=== PATIENT | female | born 1995 | race Caucasian/White ===

== ENCOUNTER 2019-12-25 15:27 | Inpatient (IN) | payer OTHER ==
[~2019-12-25] VITALS: Ht 165.1 cm; Wt 76.8 kg
[2019-12-25] MEDS ORDERED: BENZ2TAB10 PO (15:42)
[2019-12-25] MEDS ORDERED: OLAN5TAB2 PO (15:42)
[2019-12-25 16:23] LABS: BASOPHILS % (AUTO) 0.4 % (0.0-2.0); EOSINOPHILS % (AUTO) 1.2 % (1.0-6.0); HEMATOCRIT 37.1 % (36-46); HEMOGLOBIN 11.7 g/dL (12.0-16.0); LYMPHOCYTES # (AUTO) 1.7 K/uL (1.0-4.8); MEAN CORPUSCULAR HEMOGLOBIN 25.8 pg (26.0-34.0); MEAN CORPUSCULAR HGB CONC 31.5 G/dL (31.0-37.0); MEAN CORPUSCULAR VOLUME 82 fL (80-100); MONOCYTES # (AUTO) 0.4 K/uL (0.1-1.0); MONOCYTES % (AUTO) 4.8 % (2.0-9.0); NEUTROPHILS # (AUTO) 6.2 K/uL (1.8-7.7); NEUTROPHILS % (AUTO) 73.6 % (40.0-70.0); PLATELET COUNT (AUTO) 377 K/uL (150-450); RED BLOOD CELL COUNT(AUTO) 4.53 MIL/uL (4.00-5.20); RED CELL DISTRIBUTION WIDTH 17.8 % (11.5-14.5)
[2019-12-25] MEDS ORDERED: OLANZapine 5 MG TABLET PO ONE (16:30)
[2019-12-25] MEDS ORDERED: ACETAMINOPHEN 325 MG TABLET PO PRN ×2 (16:30→17:15)
[2019-12-25 16:33] LABS: ANION GAP 10 mmol/L (8-16); CALCIUM, TOTAL 9.1 mg/dL (8.8-10.5); CARBON DIOXIDE 26 mmol/L (22-29); CHLORIDE 104 mmol/L (98-107); CREATININE 0.74 mg/dL (0.60-1.30); GLOMERULAR FILTR. RATE CALC > 60 mL/min (>60); GLUCOSE,RANDOM 101 mg/dL (70-110); POTASSIUM 4.1 mmol/L (3.5-5.1); SODIUM SERUM 140 mmol/L (136-145); UREA NITROGEN, BLOOD 11 mg/dL (7-18)
[2019-12-25 16:44] LABS: ALANINE AMINOTRANSFERASE 22 U/L (12-78); ALBUMIN 3.6 g/dL (3.4-5.0); ALKALINE PHOSPHATASE 81 U/L (46-116); ASPARTATE AMINOTRANSFERASE 13 U/L (15-37); BILIRUBIN,TOTAL 0.2 mg/dL (0.1-1.0); HCG,QUANTITATIVE < 1 mIU/mL (0-6); TOTAL PROTEIN, SERUM 8.3 g/dL (6.4-8.2)
[2019-12-25] MEDS ORDERED: MAGNESIUM HYDROXIDE SUSPENSION 30 ML UDCUP PO PRN (17:15)
[2019-12-25 18:14] VITALS: BP 108/55
[2019-12-25 19:32] LABS: AMPHET/METH SCREEN,URINE NEGATIVE (NEGATIVE); BARBITURATE SCREEN, URINE NEGATIVE (NEGATIVE); BENZODIAZEPINES SCREEN,URINE NEGATIVE (NEGATIVE); CANNABINOID SCREEN,URINE NEGATIVE (NEGATIVE); COCAINE SCREEN,URINE NEGATIVE (NEGATIVE); METHADONE SCREEN, URINE NEGATIVE (NEGATIVE); OPIATE SCREEN,URINE NEGATIVE (NEGATIVE)
[2019-12-25 19:33] LABS: PHENCYCLIDINE SCREEN,URINE NEGATIVE (NEGATIVE)
[2019-12-25 20:29] VITALS: BP 119/78
[2019-12-25] MEDS ORDERED: OLANZapine 10 MG TABLET PO SCH (21:00)
[2019-12-25] MEDS ORDERED: BENZTROPINE MESYLATE 2 MG TABLET PO SCH (21:00)
[2019-12-25] MEDS: LORazepam 1 MG TABLET PO PRN (22:13)
[2019-12-26 04:21] VITALS: BP 112/65
[2019-12-26 08:09] VITALS: BP 122/72
[2019-12-26] MEDS: OLANZapine 5 MG TABLET PO SCH (14:00)
[2019-12-26 15:08] VITALS: BP 111/68
[2019-12-26 21:21] VITALS: BP 113/65
[2019-12-27] MEDS: LORazepam 1 MG TABLET PO PRN ×3 (00:57→20:30)
[2019-12-27 04:15] VITALS: BP 118/87
[2019-12-27] MEDS: OLANZapine 5 MG TABLET PO SCH (08:12)
[2019-12-27] MEDS ORDERED: LORazepam 2 MG/ML VIAL ONE (08:13)
[2019-12-27] MEDS ORDERED: HALOPERIDOL LACTATE 5 MG/ML VIAL ONE (08:14)
[2019-12-27] MEDS ORDERED: DiphenhydrAMINE HCL 50 MG/ML VIAL ONE (08:14)
[2019-12-27] MEDS ORDERED: LORazepam 2 MG/ML VIAL IM ONE (08:30)
[2019-12-27] MEDS ORDERED: DiphenhydrAMINE HCL 50 MG/ML VIAL IM ONE (08:30)
[2019-12-27] MEDS ORDERED: HALOPERIDOL LACTATE 5 MG/ML VIAL IM ONE (08:30)
[2019-12-27] MEDS: OLANZapine 10 MG TABLET PO SCH ×2 (09:00→20:30)
[2019-12-27 12:41] VITALS: BP 138/75
[2019-12-27 20:01] VITALS: BP 128/87
[2019-12-28 08:25] VITALS: BP 115/71
[2019-12-28] MEDS: OLANZapine 10 MG TABLET PO SCH ×2 (08:45→20:25)
[2019-12-28] MEDS: LORazepam 1 MG TABLET PO PRN (08:45)
[2019-12-28 15:11] VITALS: BP 104/66
[2019-12-28] MEDS ORDERED: LORazepam 2 MG/ML VIAL ONE (15:49)
[2019-12-28] MEDS ORDERED: DiphenhydrAMINE HCL 50 MG/ML VIAL ONE (15:50)
[2019-12-28] MEDS ORDERED: HALOPERIDOL LACTATE 5 MG/ML VIAL ONE (15:50)
[2019-12-28] MEDS ORDERED: LORazepam 2 MG/ML VIAL IM ONE (16:00)
[2019-12-28] MEDS ORDERED: HALOPERIDOL LACTATE 5 MG/ML VIAL IM ONE (16:00)
[2019-12-28] MEDS ORDERED: DiphenhydrAMINE HCL 50 MG/ML VIAL IM ONE ×2 (16:00→20:15)
[2019-12-28] MEDS ORDERED: ChlorproMAZINE HCL 25 MG/ML 2 ML AMP IM ONE (20:15)
[2019-12-28] MEDS: DIVALPROEX SODIUM 500 MG DR TABLET PO SCH (20:25)
[2019-12-29 04:15] VITALS: BP 109/64
[2019-12-29] MEDS: OLANZapine 10 MG TABLET PO SCH (14:24)
[2019-12-29] MEDS: LORazepam 1 MG TABLET PO PRN (14:24)
[2019-12-29] MEDS: DIVALPROEX SODIUM 500 MG DR TABLET PO SCH (14:24)
== END 2019-12-29 19:15 | DRG 885 ==
LOC: EMS 15:28 → 6S 17:05 → UNDOADMIN 17:18 → 6N 12-26 09:56 → 6S 12-28 08:23
PROVIDERS: ADMIT Internal Medicine; ATTEND Internal Medicine
DX: F29 Unspecified psychosis not due to a substance or known physiological condition (principal); R45.851 Suicidal ideations; Z87.891 Personal history of nicotine dependence; F32.9 Major depressive disorder, single episode, unspecified; F41.9 Anxiety disorder, unspecified; Z20.828 Contact with and (suspected) exposure to other viral communicable diseases
CPT/HCPCS: G0480; J1200; J1630; J2060; J3230